=== PATIENT | male | born 1980 | race Caucasian/White ===

== ENCOUNTER 2021-01-22 11:25 | Observation (INO) | payer SELFPAY ==
[2021-01-22] MEDS ORDERED: SODIUM CHLORIDE 0.9% 500 ML 500 ML IV STA (11:56)
[2021-01-22 11:57] LABS: Glucose,Whole Blood 105 mg/dL (75-99)
--- NOTE | 2021-01-22 12:30 | CT ---
EXAMINATION TYPE: CT brain wo con DATE OF EXAM: 01/22/2021 COMPARISON: None HISTORY: Neuro deficit CT DLP: 1119.4 mGycm. Automated Exposure Control for Dose Reduction was Utilized. TECHNIQUE: CT scan of the head is performed without contrast. FINDINGS: The ventricles, basal cisterns and sulci over the convexities are within normal limits and there is n o evidence of mass, mass effect or shift of midline structures. No abnormal density is seen throughout the brain parenchyma. There is no acute intra or extra-axial hemorrhage. The posterior fossa, including the brainstem, fourth ventricle and cerebellar pontine angles are pushpa sly normal. The intraorbital contents are normal and symmetric. Visualized paranasal sinuses and mastoid air cell s are well aerated. The calvarium is intact. IMPRESSION: No significant abnormality seen.
[2021-01-22 12:58] LABS: Basophils # (A) 0.1 k/uL (0-0.2); Basophils % (A) 1 %; Eosinophils # (A) 0.1 k/uL (0-0.7); Eosinophils % (A) 1 %; HCT 44.9 % (39.0-53.0); HGB 14.7 gm/dL (13.0-17.5); Lymphocytes # (A) 1.6 k/uL (1.0-4.8); Lymphocytes % (A) 16 %; MCHC 32.8 g/dL (31.0-37.0); MCV 85.4 fL (80.0-100.0); Mean Platelet Volume 7.4; Monocytes # (A) 0.7 k/uL (0-1.0); Monocytes % (A) 6 %; Neutrophils # (A) 7.8 k/uL (1.3-7.7); Neutrophils % (A) 75 %; Platelet Count 299 k/uL (150-450); RBC 5.26 m/uL (4.30-5.90); RDW 13.2 % (11.5-15.5); WBC 10.4 k/uL (3.8-10.6)
[2021-01-22 13:01] LABS: ALT 18 U/L (4-49); AST 31 U/L (17-59); African American GFR (CKD) >90 (>60 ml/min/1.73 sqM); Albumin 4.5 g/dL (3.5-5.0); Alkaline Phosphatase 85 U/L (38-126); Anion Gap 8 mmol/L; Blood Urea Nitrogen 15 mg/dL (9-20); Calcium 9.4 mg/dL (8.4-10.2); Carbon Dioxide 22 mmol/L (22-30); Chloride 106 mmol/L (98-107); Creatine Kinase 71 U/L (55-170); Glucose 100 mg/dL (74-99); Non-African American GFR(CKD) >90 (>60 ml/min/1.73 sqM); Sodium 136 mmol/L (137-145); Total Bilirubin 0.4 mg/dL (0.2-1.3); Total Protein 7.7 g/dL (6.3-8.2)
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
--- NOTE | 2021-01-22 13:08 | CT ---
CTA head HISTORY: Headache and TIA symptoms COMPARISON: None. TECHNIQUE: CTA of the head is performed following IV contrast according to CTA protocol coronal and s agittal reconstructions were generated and reviewed. MIP images were also obtained. Lungs: The intracerebral vasculature appears normal. There is no segmental occlusion, vascular malformation or sizable aneurysm sac. IMPRESSION: No significant abnormality seen.
[2021-01-22 13:09] LABS: Potassium 5.5 mmol/L (3.5-5.1)
[2021-01-22 13:17] LABS: INR 0.9 (<1.2); Partial Thromboplastin Time 24.4 sec (22.0-30.0); Prothrombin Time 10.2 sec (9.0-12.0)
[2021-01-22 13:27] LABS: Amphetamine Screen,Urine Not Detected (NotDetected); Barbiturate Screen,Urine Detected (NotDetected); Benzodiazepines Screen,Urine Not Detected (NotDetected); Cocaine Screen,Urine Not Detected (NotDetected); Methadone Screen, Urine Not Detected (NotDetected); Opiate Screen,Urine Not Detected (NotDetected); Oxycodone Screen, Urine Detected (NotDetected); Phencyclidine Screen,Urine Not Detected (NotDetected); Tricyclic Antidepressant,Urine Not Detected (NotDetected); Urn Cannabinoid Scrn Not Detected (NotDetected)
[2021-01-22] MEDS ORDERED: ASPIRIN 325 MG TAB PO STA (13:54)
[2021-01-22 17:04] LABS: T4, Free (Free Thyroxine) 1.34 ng/dL (0.78-2.19)
[2021-01-22] MEDS ORDERED: IBUPROFEN 600 MG TAB PO STA (17:14)
--- NOTE | 2021-01-22 18:59 | HP ---
HISTORY AND PHYSICAL DATE OF SERVICE: 01/22/2021 CHIEF COMPLAINTS: Difficulty speaking and weakness of the right side. HISTORY OF PRESENT ILLNESS: This 40-year-old gentleman with a past medical history of triple brain bleed, history of migraines, history of depression, not being followed by any primary physician in the outpatient setting, apparently noted to have some difficulty speaking and right-sided headache. Patient also has some weakness of the right side while driving. The symptoms are on and off. The patient also has numbness and because of that the patient is concerned and patient came to [facility] Emergency Room and was admitted for evaluation and treatment. There is no history of any fever, rigors, chills. He history of loss of consciousness or seizures at this time. PAST MEDICAL HISTORY: History of brain surgery, history of brain bleed, history of migraine. MEDICATIONS: Home medications are none. ALLERGIES: None. FAMILY HISTORY: No history of heart disease or strokes in the family. SOCIAL HISTORY: No history of smoking, no alcohol. REVIEW OF SYSTEMS: ENT As mentioned earlier. CARDIOVASCULAR No angina or palpitations. RESPIRATORY No cough, no hemoptysis. GI No nausea, vomiting, or diarrhea. No dysuria or hematuria. NERVOUS As mentioned earlier. ALLERGY/IMMUNOLOGY No asthma or hayfever. MUSCULOSKELETAL As mentioned earlier. HEMATOLOGY/ONCOLOGY Negative. ENDOCRINE No history of diabetes or hypothyroidism. CONSTITUTIONAL As mentioned earlier. DERMATOLOGY Negative. RHEUMATOLOGY Negative, PSYCHIATRY As mentioned earlier. PHYSICAL EXAMINATION: Alert and oriented x3. Pulse 84, blood pressure 140/80, respiration 18, temperature 97.7, pulse ox 975 on room air. HEENT: Conjunctivae normal. Oral mucosa moist. NECK: No jugular venous distention. No lymph node enlargement. CARDIOVASCULAR: S1, S2, muffled. No S3, no S4, RESPIRATORY: Diminished breath sounds at the bases. No rhonchi, no crackles. ABDOMEN: Soft, nontender. No mass palpable. LEGS: No edema, no swelling. NERVOUS SYSTEM: Higher functions mentioned earlier. Moves all four limbs. No focal motor or sensory deficits. LYMPHATICS: No lymph node in neck or axilla. SKIN: No rash. JOINTS: No active deforming arthropathy. LAB STUDIES: Shows CBC within normal limits and sodium is 136, potassium 5.5. The drug screen is positive for meth, positive oxycodone and as well as barbiturates. TSH is 0.386, free T4 is normal. COVID-[address] scan of the brain which I reviewed personally showed no acute abnormality. The CTA of the brain was also done which showed no acute abnormality. ASSESSMENT: 1. Slurring of speech and weakness of the right side, rule out acute stroke. 2. History of previous brain bleed. 3. History of migraine. 4. History of brain surgery. 5. History of depression. 6. Hyponatremia. 7. Hyperkalemia. 8. Increased random blood sugar. 9. Decreased TSH and normal free T4. RECOMMENDATIONS AND DISCUSSION: In this 40-year-old gentleman who presented with multiple complex medical issues, we will monitor the patient closely, continue the current medications, continue symptomatic treatment. We will admit the patient, full neurovascular workup, neuro checks. I would also recommend MRI of the brain. Otherwise, prognosis guarded because of multiple complex medical issues. DVT prophylaxis. Incentive spirometry. Monitor blood pressure closely. See orders for further details. MMODL / IJN: [id number] /
[2021-01-22] MEDS: ATORVASTATIN 40 MG TAB PO SCH (21:31)
[2021-01-23] MEDS: PANTOPRAZOLE 40 MG TABLET PO SCH (07:51)
[2021-01-23] MEDS ORDERED: ASPIRIN 325 MG TAB PO SCH (09:00)
[2021-01-23] MEDS: ASPIRIN 81 MG PO SCH (09:13)
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
[2021-01-23 12:27] LABS: Basophils # (A) 0.04 X 10*3/uL (0.00-0.10); Basophils % (A) 0.4 %; Eosinophils # (A) 0.27 X 10*3/uL (0.04-0.35); Eosinophils % (A) 2.5 %; HCT 43.2 % (39.6-50.0); HGB 13.7 g/dL (13.0-17.0); Lymphocytes # (A) 2.01 X 10*3/uL (0.90-5.00); Lymphocytes % (A) 18.4 %; MCH 27.7 pg (27.0-32.0); MCHC 31.7 g/dL (32.0-37.0); MCV 87.4 fL (80.0-97.0); Mean Platelet Volume 10.3 fL (9.5-12.2); Monocytes # (A) 1.23 X 10*3/uL (0.20-1.00); Monocytes % (A) 11.2 %; Neutrophils # (A) 7.35 X 10*3/uL (1.80-7.70); Neutrophils % (A) 67.1 %; Platelet Count 320 X 10*3/uL (140-440); RBC 4.94 X 10*6/uL (4.40-5.60); RDW 12.7 % (11.5-14.5); WBC 10.94 X 10*3/uL (4.50-10.00)
[2021-01-23 12:49] LABS: African American GFR (CKD) 109.4 (60.0-200.0); Anion Gap 4.3 mmol/L (4.00-12.00); Calcium 9.4 mg/dL (8.7-10.3); Carbon Dioxide 27.7 mmol/L (21.6-31.8); Chol/HDL Ratio 4.47; LDL Cholesterol,Calculated 133.4 mg/dL (0.0-131.0); Non-African American GFR(CKD) 94.4 (60.0-200.0); Potassium 4.4 mmol/L (3.5-5.5); VLDL Calculation 15.6 mg/dL (5.00-40.00)
[2021-01-23] MEDS: ACETAMINOPHEN TAB 500 MG TAB PO PRN ×2 (14:30→20:37)
[2021-01-23] MEDS ORDERED: IBUPROFEN 400 MG TAB PO STA (18:13)
--- NOTE | 2021-01-23 19:51 | PN ---
PROGRESS NOTE DATE OF SERVICE: 01/23/2021 This 40-year-old gentleman who was admitted with headache and some slurring of speech and weakness right side is being closely monitored at this time. MRI has been ordered. Neurology following the patient closely. A lumbar puncture also recommended. No chest pain. No palpitations. No fever. PHYSICAL EXAMINATION: Alert and oriented x3. Pulse 72, blood pressure 121/78, respirations 16, temperature 97.8, pulse ox 97% on room air. HEENT: Conjunctivae normal. Oral mucosa moist. NECK: No jugular venous distention. No lymph node enlargement. CARDIOVASCULAR: S1, S2, muffled. No S3, no S4, RESPIRATORY: Diminished breath sounds at the bases. No rhonchi, no crackles. ABDOMEN: Soft, nontender. LEGS: No edema, no swelling. Nervous system: No focal deficits. LABS: Influenza is negative. Otherwise, WBC 10.94. ASSESSMENT: 1. Slurring of speech and weakness of the right side, rule out acute stroke or transient ischemic attack. 2. Increased WBC. 3. History of previous brain bleed. 4. History of migraine. 5. History of brain surgery. 6. History of depression. 7. Hyponatremia. 8. Hyperkalemia. 9. Increased random blood sugar. 10.Decreased TSH and normal free T4. DISCUSSION AND RECOMMENDATIONS: Recommend to continue current medications, continue symptomatic treatment. Otherwise, at this time I recommend symptomatic treatment. The patient will need a full admit, DVT prophylaxis closely for. Sodium and potassium are normalized today. Otherwise, closely follow with Neurology. Guarded prognosis. Further recommendations to follow. MRI has been ordered. MMODL / IJN: [id number] /
[2021-01-23] MEDS: ATORVASTATIN 40 MG TAB PO SCH (20:37)
[2021-01-23] MEDS ORDERED: AMITRIPTYLINE HCL 25 MG TAB PO SCH (21:00)
[2021-01-24 03:06] VITALS: RESP 18
[2021-01-24] MEDS: PANTOPRAZOLE 40 MG TABLET PO SCH (07:32)
[2021-01-24] MEDS: ASPIRIN 81 MG PO SCH (07:32)
[2021-01-24 07:50] VITALS: BP 103/67; PULSE 65; TEMP 97.7
--- NOTE | 2021-01-24 10:30 | MR ---
EXAMINATION TYPE: MR brain wo/w con DATE OF EXAM: 01/24/2021 COMPARISON: CT brain 2 days ago. HISTORY: TIA, headache. Acute onset neurologic deficit on admission 2 days ago. Slurred speech. Histo ry of brain hemorrhage. . TECHNIQUE: Multiplanar, multisequence images of the brain and brainstem is performed without and with IV contras t, utilizing 9 mL intravenous Gadavist . FINDINGS: Diffusion weighted images demonstrate no evidence of a recent infarct or other diffusion ab normality. The ventricular system and cisternal spaces are normal in size and appearance. The brain volume is age appropriate. Some scattered foci of T2 hyperintensity throughout the white matter bilat erally. Approximately 15 scattered lesions. Lesions are nonspecific in appearance and distribution. Midline structures demonstrate normal morphology. The craniocervical junction appears within normal limits. Post contrast images demonstrate no abnormal enhancement. The dural venous sinuses appear pa tent. The visualized sinuses are clear and the globes are intact. IMPRESSION: No MRI evidence for recent infarct. Mild nonspecific white matter changes may be on basis of altered vascular mechanics related to products of migraine headaches. Other etiologies not exclud ed. No suspicious enhancement seen.
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
--- NOTE | 2021-01-24 12:21 | EEG ---
ELECTROENCEPHALOGRAM REPORT DATE OF SERVICE: 01/24/2021. CLINICAL HISTORY: This is a 40-year-old gentleman with headaches. This video EEG is obtained to evaluate seizure epileptiform activity. RELEVANT MEDICATION: The patient is not on any antiepileptic drugs. EEG TYPE: A routine 21 channel EEG is performed with video using the 10/20 electrode placement system. DESCRIPTION: Wakefulness and brief drowsiness are obtained. During wakefulness, there is a posterior dominant rhythm of low to moderate voltage, reactive, well modulated, of 10.5- 11 hertz activity. During brief drowsiness, there is slowing attenuation of the background activity. There is no physiological stage 2 sleep. There is no focal bone slowing. Interictal and ictal is none. ACTIVATION PROCEDURE: Photic stimulation did not evoke a positive driving response. There is no abnormality during the photic stimulation. Hyperventilation is not performed. CLINICAL INTERPRETATION: This is a normal routine EEG. There are no focal slowing, epileptiform discharge or seizure on the EEG. Clinical correlation is recommended. PHILLY / ADAMN: [id number] / PATEL
[2021-01-24 18:05] LABS: HIV 2 AB Non-Reactive (Non-Reactive); HIV AB P24 Non-Reactive (Non-Reactive); HIV P24 AG Non-Reactive (Non-Reactive)
--- NOTE | 2021-01-24 22:30 | DS ---
DISCHARGE SUMMARY DATE OF SERVICE: 01/24/2021 FINAL DIAGNOSES: 1. Slurring of speech and weakness of the right side, possible acute transient ischemic attack, stroke ruled out. 2. Increased WBC. 3. History of previous brain bleed. 4. History of headaches. 5. History of migraine. 6. History of brain surgery. 7. History of depression. 8. Hyponatremia. 9. Hyperkalemia. 10.Increased random blood sugar. 11.Decreased TSH. 12.Normal free T4. DISCHARGE DISPOSITION: The patient will be discharged in stable condition with guarded prognosis. HISTORY OF PRESENT ILLNESS: This 89-year-old gentleman with a past medical history of multiple medical problems as mentioned earlier. The patient was monitored closely. Patient improved significantly. Patient had multiple evaluations including MRI and EEG. Neurology saw the patient and recommended lumbar puncture. However the headache apparently improved to 3 out of 10 and the patient is not keen on obtaining lumbar puncture at this time. On exam, vitals signs stable. Cardiovascular S1, S2. Abdomen soft. Nervous system: No focal deficits. DISCHARGE INSTRUCTIONS: 1. Discharge diet is cardiac diet. 2. Activity limited until follow up. 3. Follow up with Dr. Martínez in 1-2 days. 4. Follow up with Dr. Keeley Cox, neurologist in 1 week. 5. Ecotrin 81 mg daily. 6. Elavil 25 mg q.h.s. 7. Lipitor 10 mg q.h.s. 8. Tylenol 500 mg q.6h. 9. Followup labs in the outpatient setting. MMODL / IJN: [id number] /
--- NOTE | 2021-01-25 09:50 | ECHOF ---
Referral Reason:stroke. Peform with lipid panel MEASUREMENTS -------- HEIGHT: 177.8 cm WEIGHT: 90.7 kg BP: 129/80 RVIDd: 2.9 cm (< 3.3) IVSd: 0.9 cm (0.6 - 1.1) LVIDd: 4.8 cm (3.9 - 5.3) LVPWd: 1.1 cm (0.6 - 1.1) IVSs: 1.7 cm LVIDs: 3.0 cm LVPWs: 1.5 cm LA Diam: 3.4 cm (2.7 - 3.8) LAESV Index (A-L): 23.74 ml/m Ao Diam: 3.0 cm (2.0 - 3.7) AV Cusp: 2.3 cm (1.5 - 2.6) MV EXCURSION: 16.703 mm (> 18.000) MV EF SLOPE: 94 mm/s (70 - 150) EPSS: 0.6 cm MV E Ehsan: 0.80 m/s MV DecT: 239 ms MV A Ehsan: 0.83 m/s MV E/A Ratio: 0.96 FINDINGS -------- Sinus rhythm. This was a technically good study. The left ventricular size is normal. There is borderline concentric left ventricular hypertrophy. Overall left ventricular systolic function is normal with, an EF between 60 - 65 %. The right ventricle is normal in size. Normal LA size by volume 22+/-6 ml/m2. The right atrium is normal in size. Contrast study was performed with 2 iv injections of 8 ccs of agitated normal saline, at rest, and wi th cough. Negative saline bubble study. No PFO noted The aortic valve is trileaflet, and appears structurally normal. No aortic stenosis or regurgitation. The mitral valve is normal. The tricuspid valve appears structurally normal. Unable to estimate RVSP due to inadequate TR jet s pectral doppler profile. Trace/mild (physiologic) pulmonic regurgitation. The aortic root size is normal. Normal inferior vena cava with normal inspiratory collapse consistent with estimated right atrial pre ssure of 5 mmHg. There is no pericardial effusion. CONCLUSIONS -------- 1. The left ventricular size is normal. 2. There is borderline concentric left ventricular hypertrophy. 3. Overall left ventricular systolic function is normal with, an EF between 60 - 65 %. 4. Contrast study was performed with 2 iv injections of 8 ccs of agitated normal saline, at rest, and with cough. 5. Negative saline bubble study. No PFO noted 6. The aortic valve is trileaflet, and appears structurally normal. No aortic stenosis or regurgitati on. 7. Trace/mild (physiologic) pulmonic regurgitation. 8. There is no pericardial effusion. LINE PATROLMAN: Altagracia Weeks RDCS
== END 2021-01-24 16:00 | disposition home or self-care (01) ==
LOC: EC 11:25 → 6NMEDSUR 14:04
PROVIDERS: ADMIT Hospitalist; ATTEND Hospitalist
DX: R47.81 Slurred speech (principal); G44.099 Other trigeminal autonomic cephalgias (TAC), not intractable; R20.0 Anesthesia of skin; E87.1 Hypo-osmolality and hyponatremia; E87.5 Hyperkalemia; F32.9 Major depressive disorder, single episode, unspecified; Z20.822 Contact with and (suspected) exposure to COVID-19; Z87.891 Personal history of nicotine dependence; Z87.820 Personal history of traumatic brain injury; Z86.69 Personal history of other diseases of the nervous system and sense organs
CPT/HCPCS: 96360; 99285; 36415; 94760; 95816; 93005; 93306; 92523; 84207; 83921; 87529; 84439; 80061; 80053; 80048; 84443; 87798; 82607; 82550; 82746; 84484; 85025 ×2; 85610; 85730; 86780; 80306; 87502; 87390; 87635; 70496; 70450; 70553; G0378 ×3; A9585; Q9967